=== PATIENT | male | born 1995 | race Caucasian/White ===

== ENCOUNTER 2020-08-25 15:47 | Outpatient (CLI) | payer OTHER ==
--- NOTE | 2020-08-25 16:48 | RAD ---
RADIOGRAPH RIGHT WRIST 3 VIEWS: DATE: 08/25/2020 HISTORY: 24-year-old male with acute, traumatic right wrist pain FINDINGS: No fracture is identified. However, if there is snuffbox tenderness following trauma that suggests an occult scaphoid fracture, then the general recommendation is immobilization and follow-up imaging in 5-10 days. Alignment is normal. Joint spaces are maintained without erosions or large osteophytes. There are no abnormal soft tissue calcifications. No evidence of periostitis, permeative lesion, osteolytic lesion, or osteoblastic lesion. IMPRESSION: Normal radiograph of wrist.
== END 2020-08-25 15:48 | disposition home or self-care (01) ==
LOC: SCSRAD 15:47
PROVIDERS: ATTEND Family Medicine
DX: S69.91XA Unspecified injury of right wrist, hand and finger(s), initial encounter (principal)